=== PATIENT | male | born 1960 | race Caucasian/White ===

== ENCOUNTER 2019-09-08 18:21 | Inpatient (IN) | payer MEDICAID ==
[~2019-09-08] VITALS: Ht 172.7 cm; Wt 69.9 kg
[2019-09-08 19:24] LABS: HEMATOCRIT. 29.7 % (42.0-52.0); HEMOGLOBIN. 9.7 g/dL (14.0-18.0); MEAN CORPUSCULAR HEMOGLOBIN 27.5 pg (28.0-32.0); MEAN CORPUSCULAR VOLUME 83.9 fL (80.0-94.0); MEAN PLATELET VOLUME 8.9 fl (7.4-10.4); PLATELET 363 x1000/uL (130-400); RED BLOOD CELL COUNT 3.54 mill/uL (4.7-6.1); RED CELL DISTRIBUTION WIDTH 17.7 % (11.6-14.6)
[2019-09-08 19:26] LABS: CHLORIDE 103 mEq/L (98-107)
[2019-09-08 20:21] LABS: PLATELET ESTIMATE NORMAL
[2019-09-08] MEDS ORDERED: MORPHINE SULFATE 4 MG/ML CPJ (NOT FOR IM USE) IV ONE (21:45)
[2019-09-08] MEDS ORDERED: ACETAMINOPHEN 325MG TABLET PO ONE (22:00)
[2019-09-08] MEDS ORDERED: ASPIRIN 81MG TABLET PO ONE (22:00)
[2019-09-08] MEDS ORDERED: FLUCONAZOLE 100MG TABLET PO ONE (22:30)
[2019-09-08] MEDS ORDERED: VANCOMYCIN 1 G PREMIX 200 ML IV SCH (23:30)
[2019-09-09] VITALS (7 sets, daily range): BP systolic 101–145; BP diastolic 54–75
[2019-09-09] MEDS ORDERED: PIPERACILLIN/TAZOBACTAM 3.375GM/50ML PREMIX IV SCH (00:42)
[2019-09-09] MEDS: ACETAMINOPHEN 325MG TABLET PO PRN ×3 (04:04→23:56)
[2019-09-09 06:31] LABS: HEMATOCRIT. 28.2 % (42.0-52.0); HEMOGLOBIN. 9.1 g/dL (14.0-18.0); MEAN CORPUSCULAR HEMOGLOBIN 27.2 pg (28.0-32.0); MEAN PLATELET VOLUME 9.2 fl (7.4-10.4); PLATELET 348 x1000/uL (130-400); RED BLOOD CELL COUNT 3.36 mill/uL (4.7-6.1); RED CELL DISTRIBUTION WIDTH 17.1 % (11.6-14.6)
[2019-09-09] MEDS ORDERED: HEPARIN 5000 UNITS/ML VIAL SUBCUT SCH (09:00)
[2019-09-09] MEDS ORDERED: INFLUENZA VIRUS VACCINE(AFLURIA) 0.5ML SYR IM ONE (12:00)
[2019-09-09] MEDS ORDERED: PNEUMOCOCCAL 23-VAL P-SAC VAC 0.5 ML IM ONE (12:00)
[2019-09-09 14:03] LABS: PLATELET ESTIMATE NORMAL
[2019-09-09] MEDS ORDERED: AMLO5TAB4 MT (14:25)
[2019-09-09] MEDS ORDERED: HYDR-4135 MT (14:28)
[2019-09-09] MEDS ORDERED: LACTULOSE 20G/30ML UDC PO PRN (17:15)
[2019-09-09] MEDS ORDERED: HYDRALAZINE 20MG/ML VIAL IV PRN (17:15)
[2019-09-09] MEDS ORDERED: ONDANSETRON 4MG ODT PO PRN (17:15)
[2019-09-09] MEDS ORDERED: CLONIDINE 0.1MG TABLET PO PRN (17:15)
[2019-09-09] MEDS ORDERED: DIPHENHYDRAMINE 50MG/ML VIAL IV PRN (17:15)
[2019-09-09] MEDS: DEXT 5%/0.45% NACL 1000ML 1,000 ML IV SCH (19:01)
[2019-09-09] MEDS: PIPERACILLIN/TAZOBACTAM 2.25 G in DEXTROSE 5% WATER 50 ML IV SCH (20:54)
[2019-09-10 01:40] LABS: CLARITY URINE TURBID (CLEAR); COLOR URINE RED (YELLOW); KETONES URINE NEGATIVE (NEGATIVE); LEUKOCYTE ESTERASE URINE 3+ (NEGATIVE); NITRITE URINE POSITIVE (NEGATIVE); OCCULT BLOOD URINE 3+ (NEGATIVE); PH URINE 8.5 (4.5-8.0); PROTEIN URINE 4+ (NEGATIVE); SPECIFIC GRAVITY URINE 1.015 (1.005-1.030); UROBILINOGEN URINE 0.2 E.U./dL (0.2-1.0)
[2019-09-10] MEDS: PIPERACILLIN/TAZOBACTAM 2.25 G in DEXTROSE 5% WATER 50 ML IV SCH ×4 (02:40→20:13)
[2019-09-10 04:00] VITALS: BP 128/40
[2019-09-10 07:58] LABS: HEMATOCRIT. 27.3 % (42.0-52.0); MEAN CORPUSCULAR HEMOGLOBIN 28.1 pg (28.0-32.0); MEAN CORPUSCULAR VOLUME 84.9 fL (80.0-94.0); MEAN PLATELET VOLUME 9.4 fl (7.4-10.4); PLATELET 366 x1000/uL (130-400); RED BLOOD CELL COUNT 3.22 mill/uL (4.7-6.1); RED CELL DISTRIBUTION WIDTH 17.1 % (11.6-14.6)
[2019-09-10 08:00] VITALS: BP 138/40
[2019-09-10 08:47] LABS: CHLORIDE 101 mEq/L (98-107)
[2019-09-10 08:56] LABS: LDL CHOLESTEROL 38 mg/dL (5-100)
[2019-09-10] MEDS: AMLODIPINE 5MG TABLET PO SCH (08:57)
[2019-09-10 09:00] LABS: HDL CHOLESTEROL 15 mg/dL (40-59); T4 FREE 1.12 ng/dL (0.76-1.46)
[2019-09-10] MEDS: ACETAMINOPHEN 325MG TABLET PO PRN (09:39)
[2019-09-10 11:21] LABS: PLATELET ESTIMATE NORMAL
[2019-09-10 12:00] VITALS: BP 130/35
[2019-09-10 12:07] LABS: BG CARBOXYHEMOGLOBIN 0.5 % (0.5-1.5); BG DEOXYHEMOGLOBIN 5.2 % (0.0-5.0); BG FRACTION INSPIRED OXYGEN 21; BG METHEMOGLOBIN 0.2 % (0.0-1.5); BG OXYGEN SATURATION 94.8 % (92.0-98.5); BG OXYHEMOGLOBIN 94.1 % (94.0-97.0); BG PCO2 39.5 mmHg (35.0-45.0); BG PH 7.468 (7.350-7.450); BG PO2 69.9 mmHg (75.0-100.0); BG SAMPLE SITE RIGHT RADIAL; BG TOTAL HEMOGLOBIN 9.9 g/dL (12.0-18.0); BG VENT MODE ROOM AIR
[2019-09-10 12:13] LABS: HEPATITIS B SURFACE ANTIGEN NEGATIVE
[2019-09-10 12:42] LABS: HEPATITIS A AB IGM NEGATIVE (NEGATIVE)
[2019-09-10] MEDS: LACTULOSE 20G/30ML UDC PO SCH ×3 (13:00→16:40)
[2019-09-10] MEDS ORDERED: VANCOMYCIN 750 MG PREMIX 150 ML IV NR (13:00)
[2019-09-10 14:01] LABS: CREATINE KINASE 31 IU/L (39-308)
[2019-09-10 14:02] LABS: CREATINE KINASE MB FRACTION 2.5 ng/mL (0.5-3.6)
[2019-09-10] MEDS: DEXT 5%/0.45% NACL 1000ML 1,000 ML IV SCH (14:14)
[2019-09-10 16:00] VITALS: BP 172/57
[2019-09-10 20:00] VITALS: BP 105/33
[2019-09-10] MEDS: CYCLOBENZAPRINE 10MG TABLET PO SCH (20:13)
[2019-09-11] VITALS: BP 117/66
[2019-09-11] MEDS: PIPERACILLIN/TAZOBACTAM 2.25 G in DEXTROSE 5% WATER 50 ML IV SCH ×3 (01:49→14:07)
[2019-09-11 04:00] VITALS: BP 166/44
[2019-09-11] MEDS: CYCLOBENZAPRINE 10MG TABLET PO SCH ×3 (05:11→21:10)
[2019-09-11 06:11] LABS: BASOPHILS % 1.3 % (0.0-2.0); EOSINOPHILS % 6.4 % (0.0-5.0); HEMATOCRIT. 28.3 % (42.0-52.0); HEMOGLOBIN. 9.2 g/dL (14.0-18.0); LYMPHOCYTES % 17.8 % (20.0-50.0); MEAN CORPUSCULAR HEMOGLOBIN 27.4 pg (28.0-32.0); MEAN CORPUSCULAR VOLUME 84.2 fL (80.0-94.0); MONOCYTES % 13.1 % (2.0-8.0); NEUTROPHILS % 61.4 % (40.0-76.0); PLATELET 403 x1000/uL (130-400); RED BLOOD CELL COUNT 3.36 mill/uL (4.7-6.1); RED CELL DISTRIBUTION WIDTH 17.3 % (11.6-14.6)
[2019-09-11 08:00] VITALS: BP 151/83
[2019-09-11] MEDS: LACTULOSE 20G/30ML UDC PO SCH ×3 (08:44→19:07)
[2019-09-11] MEDS: AMLODIPINE 5MG TABLET PO SCH (08:45)
[2019-09-11] MEDS: DEXT 5%/0.45% NACL 1000ML 1,000 ML IV SCH (11:48)
[2019-09-11] MEDS: LORAZEPAM 2MG/ML CPJ IV PRN (11:49)
[2019-09-11 12:00] VITALS: BP 125/103
[2019-09-11 16:00] VITALS: BP 159/90
[2019-09-11 20:00] VITALS: BP 132/52
[2019-09-11] MEDS ORDERED: PIPERACILLIN/TAZOBACTAM 2.25 G in DEXTROSE 5% WATER 50 ML IV SCH (21:00)
[2019-09-12] VITALS: BP 161/58
[2019-09-12] MEDS: LORAZEPAM 2MG/ML CPJ IV PRN (01:34)
[2019-09-12] MEDS: AMPICILLIN SOD/SULBACTAM NA 3 G in SODIUM CHLORIDE 0.9% 100 ML IV SCH ×2 (01:36→22:00)
[2019-09-12 04:00] VITALS: BP 158/63
[2019-09-12] MEDS: CYCLOBENZAPRINE 10MG TABLET PO SCH ×3 (05:59→22:34)
[2019-09-12 06:28] LABS: BASOPHILS % 1.2 % (0.0-2.0); HEMATOCRIT. 29.2 % (42.0-52.0); HEMOGLOBIN. 9.5 g/dL (14.0-18.0); LYMPHOCYTES % 16.6 % (20.0-50.0); MEAN CORPUSCULAR HEMOGLOBIN 27.6 pg (28.0-32.0); MEAN CORPUSCULAR VOLUME 84.5 fL (80.0-94.0); MEAN PLATELET VOLUME 8.6 fl (7.4-10.4); MONOCYTES % 14.6 % (2.0-8.0); NEUTROPHILS % 61.6 % (40.0-76.0); PLATELET 403 x1000/uL (130-400); RED BLOOD CELL COUNT 3.45 mill/uL (4.7-6.1); RED CELL DISTRIBUTION WIDTH 16.9 % (11.6-14.6)
[2019-09-12 08:00] VITALS: BP 131/47
[2019-09-12] MEDS: LACTULOSE 20G/30ML UDC PO SCH ×3 (09:46→17:00)
[2019-09-12] MEDS: FOLIC ACID/VITAMIN B COMP W-C TABLET PO SCH (09:47)
[2019-09-12] MEDS: AMLODIPINE 5MG TABLET PO SCH (09:47)
[2019-09-12] MEDS: DEXT 5%/0.45% NACL 1000ML 1,000 ML IV SCH (09:50)
[2019-09-12 12:00] VITALS: BP 133/61
[2019-09-12 16:00] VITALS: BP 143/51
[2019-09-12 20:00] VITALS: BP 142/55
[2019-09-13] VITALS (14 sets, daily range): BP systolic 99–150; BP diastolic 37–60
[2019-09-13] MEDS: DEXT 5%/0.45% NACL 1000ML 1,000 ML IV SCH ×2 (01:15→21:03)
[2019-09-13] MEDS: LORAZEPAM 2MG/ML CPJ IV PRN (03:49)
[2019-09-13 06:35] LABS: BASOPHILS % 1.2 % (0.0-2.0); EOSINOPHILS % 2.9 % (0.0-5.0); HEMATOCRIT. 29.1 % (42.0-52.0); HEMOGLOBIN. 9.6 g/dL (14.0-18.0); LYMPHOCYTES % 16.3 % (20.0-50.0); MEAN CORPUSCULAR HEMOGLOBIN 27.4 pg (28.0-32.0); MEAN CORPUSCULAR VOLUME 83.1 fL (80.0-94.0); MEAN PLATELET VOLUME 8.2 fl (7.4-10.4); MONOCYTES % 14.8 % (2.0-8.0); NEUTROPHILS % 64.8 % (40.0-76.0); PLATELET 404 x1000/uL (130-400); RED CELL DISTRIBUTION WIDTH 17.1 % (11.6-14.6)
[2019-09-13] MEDS: CYCLOBENZAPRINE 10MG TABLET PO SCH ×2 (06:37→18:34)
[2019-09-13 07:42] LABS: INR 1.1; PROTHROMBIN TIME 11.1 sec (9.6-11.0)
[2019-09-13] MEDS: LACTULOSE 20G/30ML UDC PO SCH ×4 (09:00→17:00)
[2019-09-13] MEDS: AMLODIPINE 5MG TABLET PO SCH ×2 (09:00→09:31)
[2019-09-13] MEDS: FOLIC ACID/VITAMIN B COMP W-C TABLET PO SCH ×2 (09:00→09:30)
[2019-09-13] MEDS ORDERED: LIDOCAINE HCL 1% 20ML VIAL (Pyxis) INJ ONE (11:34)
[2019-09-13] MEDS ORDERED: SODIUM BICARBONATE 4% (2.4MEQ) 5ML VIAL IV ONE (11:34)
[2019-09-13] MEDS ORDERED: FENTANYL CITRATE/PF 50MCG/ML 2ML VIAL ONE (11:34)
[2019-09-13] MEDS ORDERED: FENTANYL CITRATE/PF 50MCG/ML 2ML VIAL IV ONE (11:40)
[2019-09-13] MEDS ORDERED: FENTANYL CITRATE/PF 50MCG/ML 2ML VIAL IV SCH (11:40)
[2019-09-13 13:22] LABS: HEMATOCRIT 27.4 % (42.0-52.0); HEMOGLOBIN 8.9 g/dL (14.0-18.0)
[2019-09-13] MEDS ORDERED: LORAZEPAM 2MG/ML CPJ IV PRN (20:30)
[2019-09-13] MEDS: CYCLOBENZAPRINE 10MG TABLET GT SCH (21:03)
[2019-09-13] MEDS ORDERED: CLONIDINE 0.1MG TABLET GT PRN (23:15)
[2019-09-14] VITALS: BP 108/84
[2019-09-14] MEDS: ACETAMINOPHEN 325MG TABLET PO PRN (00:12)
[2019-09-14] MEDS ORDERED: ONDANSETRON 4MG ODT GT PRN (01:15)
[2019-09-14] MEDS: AMPICILLIN SOD/SULBACTAM NA 3 G in SODIUM CHLORIDE 0.9% 100 ML IV SCH (03:17)
[2019-09-14 04:00] VITALS: BP 112/54
[2019-09-14] MEDS: CYCLOBENZAPRINE 10MG TABLET GT SCH ×2 (05:26→13:42)
[2019-09-14 07:20] LABS: HEMATOCRIT 23.3 % (42.0-52.0); HEMOGLOBIN 7.7 g/dL (14.0-18.0); MEAN CORPUSCULAR VOLUME 84.3 fL (80.0-94.0); PLATELET 369 x1000/uL (130-400); RED BLOOD CELL COUNT 2.76 mill/uL (4.7-6.1); RED CELL DISTRIBUTION WIDTH 17.6 % (11.6-14.6)
[2019-09-14 07:41] LABS: CHLORIDE 102 mEq/L (98-107)
[2019-09-14 08:00] VITALS: BP 126/66
[2019-09-14] MEDS ORDERED: AMLODIPINE 5MG TABLET GT SCH (09:00)
[2019-09-14] MEDS ORDERED: FOLIC ACID/VITAMIN B COMP W-C TABLET GT SCH (09:00)
[2019-09-14] MEDS: LACTULOSE 20G/30ML UDC GT SCH ×3 (09:00→18:04)
[2019-09-14 10:50] LABS: PHOSPHORUS 3.1 mg/dL (2.5-4.9)
[2019-09-14 13:40] LABS: HEMATOCRIT 23.9 % (42.0-52.0); HEMOGLOBIN 7.9 g/dL (14.0-18.0)
[2019-09-14] MEDS: DEXT 5%/0.45% NACL 1000ML 1,000 ML IV SCH (13:43)
[2019-09-14] MEDS ORDERED: LEVOFLOXACIN 250MG TABLET PO SCH (14:00)
[2019-09-14 16:00] VITALS: BP 103/25
[2019-09-14 19:05] VITALS: BP 114/52
== END 2019-09-14 20:58 | DRG 720 ==
LOC: ER 18:21 → 7WST 22:38 → ENRESERV 23:04 → 7WST 09-09 01:05
PROVIDERS: ADMIT Internal Medicine; ATTEND Internal Medicine
PROC: 5A1D70Z Performance of Urinary Filtration, Intermittent, Less than 6 Hours Per Day (ICD-10-PCS; 2019-09-11)
PROC: 0FB13ZX Excision of Right Lobe Liver, Percutaneous Approach, Diagnostic (ICD-10-PCS; principal; 2019-09-13)
PROC: 5A1D70Z Performance of Urinary Filtration, Intermittent, Less than 6 Hours Per Day (ICD-10-PCS; 2019-09-13)
DX: A41.59 Other Gram-negative sepsis (principal); E43 Unspecified severe protein-calorie malnutrition; G93.49 Other encephalopathy; I13.2 Hypertensive heart and chronic kidney disease with heart failure and with stage 5 chronic kidney disease, or end stage renal disease; L89.159 Pressure ulcer of sacral region, unspecified stage; E11.22 Type 2 diabetes mellitus with diabetic chronic kidney disease; I50.23 Acute on chronic systolic (congestive) heart failure; N13.6 Pyonephrosis; E87.1 Hypo-osmolality and hyponatremia; N18.6 End stage renal disease; Z99.2 Dependence on renal dialysis; F41.9 Anxiety disorder, unspecified; K76.9 Liver disease, unspecified; Z16.12 Extended spectrum beta lactamase (ESBL) resistance; B96.1 Klebsiella pneumoniae [K. pneumoniae] as the cause of diseases classified elsewhere; I42.9 Cardiomyopathy, unspecified; D63.8 Anemia in other chronic diseases classified elsewhere; B96.4 Proteus (mirabilis) (morganii) as the cause of diseases classified elsewhere; I27.20 Pulmonary hypertension, unspecified; C22.8 Malignant neoplasm of liver, primary, unspecified as to type; I34.0 Nonrheumatic mitral (valve) insufficiency; Z90.49 Acquired absence of other specified parts of digestive tract; Z93.1 Gastrostomy status; Z74.01 Bed confinement status; Z68.23 Body mass index [BMI] 23.0-23.9, adult; I69.354 Hemiplegia and hemiparesis following cerebral infarction affecting left non-dominant side
CPT/HCPCS: 36415; 36600; 70551; 71045; 72100; 72170; 73030; 74176; 76700; 76942; 80048; 80061; 80076; 80202; 81003; 82105; 82140; 82375; 82378; 82550; 82553; 82805; 83605; 83880; 84100; 84145; 84439; 84443; 84484; 85014; 85018; 85027; 86301; 86705; 86709; 86803; 87070; 87077; 87186; 87340; 88307; 90686; 90732; 93005; 93306; 93970; 97162; 99285; A6261; C1893; J0295; J0360; J1644; J2060; J2270; J2543; J3010; J3370; J3490; J7040; J7050; J7060; Q0162

== ENCOUNTER 2019-10-14 15:41 | Emergency (ER) | payer MEDICAID ==
[~2019-10-14] VITALS: Ht 175.3 cm; Wt 74.0 kg
[~2019-10-14 15:41] MED LIST: AMLO5TAB4 MT; HYDR-4135 MT
[2019-10-14] MEDS ORDERED: ONDANSETRON HCL 4MG/2ML INJ IV STA (18:45)
[2019-10-14] MEDS ORDERED: SODIUM CHLORIDE 0.9% 1,000 ML IV ONE (18:45)
[2019-10-14 19:44] LABS: CHLORIDE 93 mEq/L (98-107)
[2019-10-14 19:52] LABS: INR 1.1; PROTHROMBIN TIME 10.9 sec (9.6-11.0)
[2019-10-14 19:53] LABS: BASOPHILS % 1.5 % (0.0-2.0); EOSINOPHILS % 3.5 % (0.0-5.0); HEMATOCRIT. 36.2 % (42.0-52.0); HEMOGLOBIN. 11.5 g/dL (14.0-18.0); MEAN CORPUSCULAR HEMOGLOBIN 26.6 pg (28.0-32.0); MEAN CORPUSCULAR VOLUME 83.9 fL (80.0-94.0); MEAN PLATELET VOLUME 8.1 fl (7.4-10.4); MONOCYTES % 8.2 % (2.0-8.0); NEUTROPHILS % 73.8 % (40.0-76.0); PLATELET 442 x1000/uL (130-400); RED BLOOD CELL COUNT 4.31 mill/uL (4.7-6.1); RED CELL DISTRIBUTION WIDTH 20.7 % (11.6-14.6)
[2019-10-14] MEDS ORDERED: ONDANSETRON HCL 4MG/2ML INJ IV ONE (20:45)
[2019-10-14] MEDS ORDERED: MORPHINE SULFATE 4 MG/ML CPJ (NOT FOR IM USE) IV ONE (20:45)
[2019-10-14] MEDS ORDERED: VANCOMYCIN 1 G PREMIX 200 ML IV SCH (20:45)
[2019-10-14] MEDS ORDERED: PIPERACILLIN/TAZ 3.375G PREMIX 50 ML IV ONE (20:45)
[2019-10-15 00:01] VITALS: BP 159/95
== END 2019-10-15 01:11 | disposition short-term general hospital (02) ==
LOC: ER 15:41 → EDBEDREQ 21:23 → EDBEDREQSVC 21:23 → EDBEDREQTM 21:23 → CANRESERV 22:24 → ENRESERV 22:24 → ER 10-15 01:11 → CANBEDREQ 10-15 04:36
DX: R91.8 Other nonspecific abnormal finding of lung field (principal); E11.22 Type 2 diabetes mellitus with diabetic chronic kidney disease; I12.0 Hypertensive chronic kidney disease with stage 5 chronic kidney disease or end stage renal disease; N18.6 End stage renal disease; I73.9 Peripheral vascular disease, unspecified; Z99.2 Dependence on renal dialysis; Z98.890 Other specified postprocedural states; Z89.431 Acquired absence of right foot; Z93.1 Gastrostomy status
CPT/HCPCS: 36415; 71045; 80053; 83605; 84145; 84484; 85025; 85610; 87040; 93005; 96365; 96366; 96375; 96376; 99285; J2270; J2405; J2543; J3370; J7030